=== PATIENT | male | born 1940 | race Caucasian/White ===

== ENCOUNTER 2021-08-22 14:56 | Day surgery (SDCO) | payer MEDICARE, OTHER ==
[~2021-08-22] VITALS: Ht 172.7 cm; Wt 50.6 kg
[2021-08-22 17:43] LABS: BASOPHIL 0.1 % (0-2); EOSINOPHIL 0 % (0-7); HGB 14.5 g/dl (13.2-18.0); LYMPHOCYTE 3.5 % (15-48); MCH 30.1 pg (25.0-31.0); MCHC 34.5 g/dL (32.0-36.0); MCV 87.1 fL (78.0-100.0); MONOCYTE 5.2 % (0-12); MPV 8.8 fL (6.0-9.5); NRBC 0; PLT 237 K/uL (150-400); RBC 4.82 M/uL (4.70-6.00); RDW 13.9 % (11.5-14.0); WBC 10.4 K/uL (4.0-10.5)
[2021-08-22 17:59] LABS: NEUTROPHIL 90.9 % (41-80)
[2021-08-22 18:15] LABS: ALBUMIN 3.4 g/dL (3.4-5.0); CREATININE 1.86 mg/dL (0.67-1.17); GLOBULIN (CALCULATION) 3.8 g/dL; POTASSIUM 4.9 mmol/L (3.5-5.1); TOTAL PROTEIN 7.2 g/dL (6.4-8.2)
[2021-08-22 20:14] LABS: CORONAVIRUS 2019 SARS-COV-2 NEGATIVE (NEGATIVE); INFLUENZA A NAA NEGATIVE (NEGATIVE)
[2021-08-23] MEDS ORDERED: ELIQUIS5 MG PO (01:46)
[2021-08-23] MEDS ORDERED: FOLIC ACID1 MG PO (01:46)
[2021-08-23 04:27] LABS: BILIRUBIN 2+ mg/dL (NEGATIVE); BLOOD NEGATIVE Ery/uL (NEGATIVE); CLARITY CLEAR (CLEAR); GLUCOSE (U) NORMAL (NORMAL); LEUKOCYTES NEGATIVE Leu/uL (NEGATIVE); NITRITE NEGATIVE (NEGATIVE); PROTEIN TRACE (LOW) mg/dL (NEGATIVE); SPECIFIC GRAVITY >=1.030 (1.001-1.030); UROBILINOGEN 0.2 mg/dL (0.2-1.0); pH 5.5 (5.0-9.0)
[2021-08-23 04:29] LABS: COLOR AMBER (YELLOW)
[2021-08-23 06:18] LABS: BASOPHIL 0.1 % (0-2); EOSINOPHIL 0.1 % (0-7); HCT 38.9 % (42.0-52.0); LYMPHOCYTE 5.7 % (15-48); MCH 29.5 pg (25.0-31.0); MCHC 33.4 g/dL (32.0-36.0); MCV 88.2 fL (78.0-100.0); MONOCYTE 6.7 % (0-12); MPV 8.8 fL (6.0-9.5); NRBC 0; PLT 222 K/uL (150-400); RBC 4.41 M/uL (4.70-6.00); RDW 13.8 % (11.5-14.0); WBC 7.3 K/uL (4.0-10.5)
[2021-08-23 06:44] LABS: CREATININE 1.75 mg/dL (0.67-1.17); MAGNESIUM 2.5 mg/dL (1.8-2.4); POTASSIUM 4.7 mmol/L (3.5-5.1)
[2021-08-24 06:49] LABS: CREATININE 1.14 mg/dL (0.67-1.17); MAGNESIUM 2.1 mg/dL (1.8-2.4); POTASSIUM 3.8 mmol/L (3.5-5.1)
[2021-08-25 07:09] LABS: BASOPHIL 0 % (0-2); EOSINOPHIL 0.9 % (0-7); HCT 36.2 % (42.0-52.0); HGB 12.3 g/dl (13.2-18.0); LYMPHOCYTE 10.6 % (15-48); MCH 29.9 pg (25.0-31.0); MCV 87.9 fL (78.0-100.0); MONOCYTE 13.1 % (0-12); MPV 8.7 fL (6.0-9.5); NEUTROPHIL 74.9 % (41-80); NRBC 0; PLT 168 K/uL (150-400); RBC 4.12 M/uL (4.70-6.00); RDW 13.7 % (11.5-14.0); WBC 4.3 K/uL (4.0-10.5)
[2021-08-25 07:48] LABS: CREATININE 0.77 mg/dL (0.67-1.17); POTASSIUM 3.9 mmol/L (3.5-5.1)
[2021-08-28] MEDS ORDERED: ATIVAN0.5 MG PO (14:42)
[2021-08-28] MEDS ORDERED: MEGACE ORA6 TSP/1 OZ PO (14:42)
[2021-08-28] MEDS ORDERED: NORCO 5-325 TA1 EACH PO (14:42)
[2021-08-28] MEDS ORDERED: MULTIVITAMINS1 EAC8 PO (14:45)
== END 2021-08-28 18:30 ==
LOC: FER 14:56 → FMS 21:12
PROVIDERS: Allergy & Immunology Allergy; Internal Medicine; Nurse Practitioner; ADMIT Internal Medicine
DX: R62.7 Adult failure to thrive (principal); R63.8 Other symptoms and signs concerning food and fluid intake; R53.1 Weakness; R09.02 Hypoxemia; C34.90 Malignant neoplasm of unspecified part of unspecified bronchus or lung; C79.9 Secondary malignant neoplasm of unspecified site; N17.9 Acute kidney failure, unspecified; I10 Essential (primary) hypertension; D64.9 Anemia, unspecified; J44.9 Chronic obstructive pulmonary disease, unspecified; F17.200 Nicotine dependence, unspecified, uncomplicated; Z79.01 Long term (current) use of anticoagulants; Z79.899 Other long term (current) drug therapy; Z66 Do not resuscitate; Z86.2 Personal history of diseases of the blood and blood-forming organs and certain disorders involving the immune mechanism; Z20.822 Contact with and (suspected) exposure to COVID-19; Z82.49 Family history of ischemic heart disease and other diseases of the circulatory system
CPT/HCPCS: 36415; 71250; 80048; 80053; 81003; 83735; 84145; 84484; 85025; 93005; 94640; 97162; 97166; 97530-GP; 97535; G0378; J1642; J7030; J7040; U0002